=== PATIENT | female | born 2000 | race Caucasian/White ===

== ENCOUNTER 2023-03-21 08:49 | Day surgery (SDC) | payer BC ==
[~2023-03-21] VITALS: Ht 162.6 cm; Wt 90.7 kg
[2023-03-21 09:24] LABS: HCG,QUAL RESULT NEGATIVE (NEGATIVE)
[2023-03-21 11:20] VITALS: PULSE 80; RESP 20; TEMP 98; O2SAT 100
[2023-03-21] MEDS ORDERED: ACETAMINOPHEN I.V. 1000 MG 100 ML IV ONE (11:47)
[2023-03-21] MEDS ORDERED: LR 1,000 ML IV SCH (12:00)
[2023-03-21] MEDS ORDERED: METOCLOPRAMIDE HCL 10 MG/2 ML VIAL IVP PRN (12:00)
[2023-03-21] MEDS ORDERED: MEPERIDINE HCL/PF 25 MG/ML DISP.SYRIN IVP PRN (12:00)
[2023-03-21] MEDS ORDERED: LABETALOL 100 MG/ 20ML VIAL IVP PRN (12:00)
[2023-03-21] MEDS ORDERED: hydrALAZINE HCL 20 MG/ML VIAL IVP PRN (12:00)
[2023-03-21] MEDS ORDERED: MIDAZOLAM HCL 2 MG/2 ML VIAL (VERSED) IVP PRN (12:00)
[2023-03-21] MEDS ORDERED: HYDROmorphone 1 MG/ML INJ. CARTRIDGE IVP PRN ×2 (12:00)
[2023-03-21 12:20] VITALS: BP_SYST 119
[2023-03-21] MEDS ORDERED: DESFLURANE 15 MIN GAS INH ONE (12:24)
[2023-03-21] MEDS ORDERED: SUGAMMADEX SODIUM 200 MG/2 ML VIAL IV ONE (12:24)
[2023-03-21] MEDS ORDERED: LIDOCAINE/EPI 1% 1:100000 20 ML VIAL ONE (12:24)
[2023-03-21] MEDS ORDERED: ROCURONIUM BROMIDE 10 MG/ML (ZEMURON) ONE (12:24)
[2023-03-21] MEDS ORDERED: DEXAMETHASONE SOD PHOSPHATE 4 MG/ML VIAL ONE (12:24)
[2023-03-21] MEDS ORDERED: ONDANSETRON HCL 4 MG/2 ML VIAL ONE (12:24)
[2023-03-21] MEDS ORDERED: MIDAZOLAM HCL 5 MG/ML VIAL (VERSED) IV ONE (12:24)
[2023-03-21] MEDS ORDERED: LR 1,000 ML IV.SOLN IV ONE (12:24)
[2023-03-21] MEDS ORDERED: fentaNYL CITRATE/PF 100 MCG/2 ML AMP ONE (12:24)
[2023-03-21] MEDS ORDERED: LIDOCAINE 2%, 20 ML MDV ONE (12:24)
[2023-03-21] MEDS ORDERED: NS IRRIG SOLN 1000 ML IR ONE (12:24)
[2023-03-21] MEDS ORDERED: PROPOFOL 200MG/ 20ML VIAL (DIPRIVAN) IV ONE (12:24)
== END 2023-03-21 13:56 | disposition home or self-care (01) ==
LOC: SDS 08:49 → SMU 08:50 → SDS 13:56
PROVIDERS: ATTEND Otolaryngology
DX: J03.90 Acute tonsillitis, unspecified (principal); J35.01 Chronic tonsillitis; E66.9 Obesity, unspecified; N89.8 Other specified noninflammatory disorders of vagina; Z68.39 Body mass index [BMI] 39.0-39.9, adult
CPT/HCPCS: 42826; 84703; 88304; J3490; J1100; J2001; J2250; J2405; J2704; J3010; J7120; J0131; J3465